=== PATIENT | female | born 1945 | race Hispanic/Latino ===

== ENCOUNTER 2016-10-16 07:49 | Day surgery (SDC) | payer MEDICARE, OTHER ==
[2016-10-16] MEDS ORDERED: Lactated Ringer's 500 ML IV ONE (09:02)
[2016-10-16] MEDS ORDERED: Propofol 10 mg/ml Inj (20 ML) ONE (11:00)
[2016-10-16 11:41] VITALS: RESP 16; TEMP 97
[2016-10-16 11:54] VITALS: BP 125/59; PULSE 59; O2SAT 98
== END 2016-10-16 12:20 | disposition home or self-care (01) ==
LOC: H.ENDO 07:49
PROVIDERS: ATTEND Internal Medicine Gastroenterology
DX: Z12.11 Encounter for screening for malignant neoplasm of colon (principal); K30 Functional dyspepsia; Z85.42 Personal history of malignant neoplasm of other parts of uterus; K57.30 Diverticulosis of large intestine without perforation or abscess without bleeding; K62.5 Hemorrhage of anus and rectum; K64.0 First degree hemorrhoids
CPT/HCPCS: 45378; 88305; J2001; J2704; J7120